=== PATIENT | female | born 1985 | race Caucasian/White ===

== ENCOUNTER 2020-01-28 14:57 | Emergency (ER) | payer OTHER, SELFPAY ==
[2020-01-28 15:27] VITALS: BP 114/72; PULSE 95; RESP 18; TEMP 37.1; O2SAT 99
--- NOTE | 2020-01-28 16:24 | ED.GENADULT ---
HPI - General Adult General Chief complaint: Upper Respiratory Infection Stated complaint: Ear/Nose/Throat Time Seen by Provider: 01/28/20 16:24 Source: patient Mode of arrival: ambulatory Limitations: no limitations History of Present Illness HPI narrative: 34-year-old female patient presents to the [facility] with complaints of cold symptoms for the past 4 days. Patient denies any fevers that she is aware of stating that she does not have a thermometer at home but she has had body aches, chills, runny nose, stuffy nose, slight cough and sore throat. Patient also states that she has had a blister right behind the left lower molar that started today. Patient states she is been taking [id number] Tylenol. Denies getting flu shot this year. Patient is a smoker. Patient denies or breast-feeding at this time. Related Data Allergies Allergy/AdvReac Type Severity Reaction Status Date / Time Sulfa (Sulfonamide Allergy Unknown Rash Verified 01/28/20 15:55 Antibiotics) Review of Systems Review of Systems: Narrative: CONSTITUTIONAL: Denies fever, positive subjective chills, and sweats. EYES: Denies visual changes, redness, or discharge. ENT: Positive rhinorrhea, congestion, sore throat, denies otalgia. CARDIOVASCULAR: Denies chest pain, palpitations, or edema. RESPIRATORY: Positive mild cough denies dyspnea. GASTROINTESTINAL: Denies abdominal pain, nausea, vomiting, or diarrhea. GENITOURINARY: Denies dysuria or hematuria. SKIN: Denies rash or itching. MUSCULOSKELETAL: Denies back pain, joint pain, or myalgia. NEUROLOGIC: Positive headache, denies numbness, or weakness. PSYCHIATRIC: Denies anxiety or depression. [facility] Past Medical History Medical History Anxiety with depression Bladder cystocele Frequent UTI Nicotine dependence with current use Tobacco dependence Surgical History Surgical History H/O LEEP Hx of appendectomy Hx of tonsillectomy Family History Family History Mother Family history of anemia Family history of arthritis Family history of atrial fibrillation Social History Social History (Reviewed 01/28/20 @ 16:25 by MIKAELA Funez Smoking packs per day: 0.5 Smoking cigarettes per day: 10.0 Years smoked: 15 Smoking pack-years: 7.50 Smoking status: Current every day smoker Tobacco type: cigarettes Second hand tobacco smoke exposure: Yes Alcohol intake: current Substance use: never Substance use type: does not use Additional living arrangements comments: Gender identity (if verbalized by the patient): Female Spiritual care concerns: No Comments At the time of my signature I agree with nursing past medical history, surgical, social, and family history. There is no relevant family history pertinent to the presenting complaint. Exam Narrative: Exam Narrative: GENERAL: Well-appearing, well-nourished, and in no acute distress. HEAD: Normocephalic, atraumatic. No tenderness noted to frontal or maxillary sinuses on palpation EYES: PERRLA and EOMI. ENT: Nares with erythema and edema noted bilaterally, no rhinorrhea or epistaxis. Mucous membranes moist. Posterior pharynx with no erythema, tonsillar margin, exudates or lesions present. There is a small ulcer noted behind the back molar on the left lower oral cavity. NECK: Supple. No lymphadenopathy CHEST: Clear to auscultation. No respiratory distress. Patient will talk clear complete sentences HEART: Regular rate and rhythm. No murmur heard. Normal peripheral pulses. ABDOMEN: Soft, nontender, nondistended, normal active bowel sounds. EXTREMITIES: Normal range of motion. No edema. SKIN: Warm, dry, no rash. NEURO: No focal deficits. Alert and oriented x3. Course Reevaluation(s) Reevaluation #1: Notify patient that she is negative t
== END 2020-01-28 16:40 | disposition home or self-care (01) ==
PROVIDERS: Emergency Provider Nurse Practitioner Family
DX: K12.0 Recurrent oral aphthae (principal); J06.9 Acute upper respiratory infection, unspecified; J02.9 Acute pharyngitis, unspecified; R05 Cough; F17.210 Nicotine dependence, cigarettes, uncomplicated; F41.9 Anxiety disorder, unspecified; F32.9 Major depressive disorder, single episode, unspecified
CPT/HCPCS: 87081; 87880; 99213; G0463

== ENCOUNTER 2020-05-11 07:47 | Outpatient (CLI) | payer OTHER, SELFPAY ==
--- NOTE | ~2020-05-11 | US_ITS ---
EXAMINATION: US abdomen complete DATE: 05/11/2020 08:40 INDICATION: Epigastric abdominal pain. Nausea and vomiting. TECHNIQUE: Multiple grayscale and Doppler ultrasound images of the abdomen were obtained. COMPARISON: None FINDINGS: The visualized portions of the head, body, and tail of the pancreas are normal. The inferio r vena cava is normal. Abdominal aorta is normal in caliber. The liver is normal without focal lesion . No liver surface nodularity. There is normal flow in main portal vein. The gallbladder is normal in size and contains sludge. No gallstones or gallbladder wall thickening. There was no sonographic Mur phy sign. The common duct is normal and measures 3 mm. The spleen is normal in size. The kidneys are normal in size. IMPRESSION: 1. Gallbladder sludge. No evidence of acute cholecystitis. Reviewed, dictated and finalized at location A.
[2020-05-11 08:01] LABS: Basophils Absolute Auto 0.03 K/mm3 (0.00-0.10); Basophils Percent Auto 0.5 % (0.0-1.0); Hematocrit 37.7 % (35.0-49.0); Hemoglobin 12.4 g/dL (12.0-15.0); Immature Granulocyte Absolute 0.02 K/mm3 (0.00-0.00); Immature Granulocyte Percent A 0.4 % (0.0-0.0); Lymphocytes Absolute Auto 1.76 K/mm3 (1.10-4.50); Lymphocytes Percent Auto 32.1 % (18.0-42.0); Mean Corpuscular HGB Conc 32.9 g/dL (32.0-36.0); Mean Corpuscular Hemoglobin 29.5 pg (27.0-31.0); Mean Corpuscular Volume 89.5 fL (78.0-102.0); Mean Platelet Volume 10.7 fl (9.2-11.8); Monocytes Absolute Auto 0.48 K/mm3 (0.10-0.90); Monocytes Percent Auto 8.7 % (2.0-11.0); Neutrophils Absolute Auto 3.2 K/mm3 (1.7-7.2); Neutrophils Percent Auto 58.3 % (50.0-70.0); Platelet Count Result 194 K/mm3 (150-420); Red Blood Count 4.21 M/mm3 (4.20-5.40); Red Cell Distribution Width 13.1 % (11.6-14.4); White Blood Count 5.5 K/mm3 (4.8-10.8)
[2020-05-11 08:59] LABS: Alanine Aminotransferase 48 U/L (14-59); Albumin Level 3.7 g/dL (3.4-5.0); Alkaline Phosphatase 49 U/L (46-116); Amylase 38 U/L (25-115); Anion Gap 11.3 mmol/L (7-16); Aspartate Amino Transferase 31 U/L (15-37); Bilirubin,Total 0.2 mg/dL (0.00-1.00); Blood Urea Nitrogen 11 mg/dL (7-18); Calcium 8.8 mg/dL (8.5-10.1); Carbon Dioxide 30 mmol/L (21-32); Chloride 103 mmol/L (98-108); Estimated Glomerular Filt Rate > 60; Glucose 92 mg/dL (70-99); Lipase 80 U/L (73-393); Osmolality Calculated 289 mOsm/kg (285-295); Potassium 4.3 mmol/L (3.5-5.1); Sodium 140 mmol/L (136-145); Total Protein 6.9 g/dL (6.4-8.2)
[2020-05-14 14:30] LABS: H pylori Ag Stool Not Detected (Not Detected)
== END 2020-05-11 07:48 | disposition home or self-care (01) ==
PROVIDERS: PCP Nurse Practitioner Family; Visit Provider Nurse Practitioner Family
DX: R10.13 Epigastric pain (principal)
CPT/HCPCS: 36415; 76700; 80053; 82150; 83690; 85025; 87338

== ENCOUNTER 2020-10-10 11:56 | Emergency (ER) | payer OTHER, SELFPAY ==
--- NOTE | ~2020-10-10 | XR_ITS ---
EXAMINATION: XR hand RT min 3V INDICATION: Right hand pain, initial encounter TECHNIQUE: Three views of the right hand are obtained on four radiographs. COMPARISON: None available FINDINGS: There is an acute, traumatic, closed, oblique mid shaft fracture of the fifth metacarpal. T here are 30 degrees of palmar angulation at the fracture site. Soft tissue swelling surrounds the fra cture. No additional acute osseous findings are evident. The joint spaces are maintained. IMPRESSION: 1. Acute mid shaft fracture of the fifth metacarpal with palmar angulation. Reviewed, dictated and finalized at location A. IGERATOR CAR ICER
[2020-10-10 12:11] VITALS: BP 118/73; PULSE 88; RESP 20; TEMP 36.6; O2SAT 98
--- NOTE | 2020-10-10 12:11 | ED.UPPEXIN ---
HPI - Extremity Injury (Upper) General Chief Complaint: Extremity Injury, Upper Stated Complaint: hurt right hand Time Seen by Provider: 10/10/20 12:11 Source: patient Mode of arrival: ambulatory Limitations: no limitations History of Present Illness HPI narrative: 35-year-old woman comes in today complaining of right hand pain and swelling that started this morning after she struck her hand on a banister ball falling down the stairs. Patient states that she is safe at home and denies any other injuries. She denies numbness or tingling. Pain is worse with movement and palpation of the injured area. complaint: injury to: right and hand Onset (ago): hour(s) (3) Other Extremity Injury: Right: hand Other injuries: none Handedness: right Place: home Severity: moderate Relieving factors: none Exacerbating factors: movement of extremity Context: fall Treatments prior to arrival: cold therapy and NSAIDS Related Data Home Medications Medication Instructions Recorded Confirmed aripiprazole 5 mg tablet 5 mg PO DAILY tablet 05/10/20 10/10/20 escitalopram oxalate 5 mg tablet 5 mg PO DAILY 05/10/20 10/10/20 Allergies Allergy/AdvReac Type Severity Reaction Status Date / Time Sulfa (Sulfonamide Allergy Unknown Rash Verified 10/10/20 12:27 Antibiotics) Review of Systems Musculoskeletal: Musculoskeletal: Denies back pain, Reports arthralgias and Reports joint swelling Integumentary/Breasts: Skin/Breast: Denies pruritus, Denies erythema and Denies rash Hematologic/Lymphatic: Hematologic/Lymphatic: Denies easy bleeding and Denies easy bruising Allergic/Immunologic: Allergic/Immunologic: Denies lip swelling and Denies wheezing PMFSH Past Medical History Medical History Anxiety with depression Bladder cystocele Bladder dysfunction BMI 27.0-27.9,adult Frequent UTI Nicotine dependence with current use Self-catheterizes urinary bladder Tobacco dependence Surgical History Surgical History H/O LEEP Hx of appendectomy Hx of tonsillectomy Family History Family History Mother Family history of anemia Family history of arthritis Family history of atrial fibrillation Social History Social History Smoking packs per day: 0.5 Smoking cigarettes per day: 10.0 Years smoked: 15 Smoking pack-years: 7.50 Smoking status: Current every day smoker Tobacco type: cigarettes Second hand tobacco smoke exposure: Yes Alcohol intake: current Substance use: never Substance use type: does not use Additional living arrangements comments: Gender identity (if verbalized by the patient): Female Spiritual care concerns: No Exam Const: General: healthy appearing and alert Orientation/consciousness: patient oriented x3 Limitations: no limitations Other: Mild acute distress HENMT: General nose exam: Normal nares present Face and sinus: normal facial exam Resp: Effort & Inspection: normal respiratory effort and not labored Auscultation: clear to auscultation bilaterally, no rales, no rhonchi and no wheezes Cardio: Rate: regular rate Rhythm: regular rhythm Heart sounds: no murmurs Skin: General skin exam: normal color, no jaundice and no pallor Rashes: no rashes Neuro: General: patient oriented x3, no meningeal signs, no focal motor deficits and CN's II-XI intact bilaterally Speech: normal speech Gait exam (Neuro): Normal gait present Extrem: General: no clubbing, cyanosis or edema Other: swelling and tenderness over the distal right 5th metatarsal with no tenderness to palpation of the middle and distal phalanx. The remaining fingers and metatarsals are without tenderness or swelling or decrease in range of motion. There is no Swelling, bruising, or tenderness
[2020-10-10 13:08] VITALS: PULSE 84; RESP 20; O2SAT 98
== END 2020-10-10 13:11 | disposition home or self-care (01) ==
PROVIDERS: Emergency Provider Emergency Medicine; PCP Family Medicine
DX: S62.336A Displaced fracture of neck of fifth metacarpal bone, right hand, initial encounter for closed fracture (principal); W22.8XXA Striking against or struck by other objects, initial encounter
CPT/HCPCS: 29125; 73130; 99283; 99284; A4565

== ENCOUNTER 2020-12-26 11:51 | Emergency (ER) | payer OTHER, SELFPAY ==
[2020-12-26 12:21] VITALS: BP 105/60; PULSE 96; RESP 18; TEMP 36.4; O2SAT 98
--- NOTE | 2020-12-26 12:43 | ED.FEMALEGU ---
HPI - Female Genitourinary General Chief complaint: Urogenital-Female Stated complaint: UTI Time Seen by Provider: 12/26/20 12:43 Source: patient Mode of arrival: ambulatory Limitations: no limitations History of Present Illness HPI Narrative: Chris Toth is a 35 yo female with chronic cystitis and respiratory dysfunction, [facility] for UTI. She is taken Macrobid but has a history of needing surgical intervention urethral tubes. Currently does not have a urologist so will be given a referral ; discussed changing her antibiotic and Pyridium Related Data Allergies Allergy/AdvReac Type Severity Reaction Status Date / Time Sulfa (Sulfonamide Allergy Unknown Rash Verified 12/26/20 12:23 Antibiotics) Review of Systems Review of Systems: Narrative: CONSTITUTIONAL: Denies fever, chills, sweats. EYES: Denies visual changes, redness, discharge. ENT: Denies rhinorrhea, congestion, sore throat, otalgia. CARDIOVASCULAR: Denies chest pain, palpitations, edema. RESPIRATORY: Denies dyspnea, wheezing, cough GASTROINTESTINAL: Denies abdominal pain, nausea, vomiting, diarrhea. GENITOURINARY: Denies dysuria, hematuria, abnormal discharge SKIN: Denies rash or itching. Chronic urinary symptoms NEUROLOGIC: Denies numbness, or focal weakness. PSYCHIATRIC: Denies anxiety or depression. [facility] Past Medical History Medical History Anxiety with depression Bladder cystocele Bladder dysfunction BMI 27.0-27.9,adult Frequent UTI Nicotine dependence with current use Self-catheterizes urinary bladder Tobacco dependence Surgical History Surgical History H/O LEEP Hx of appendectomy Hx of tonsillectomy Family History Family History Mother Family history of anemia Family history of arthritis Family history of atrial fibrillation Social History Social History Smoking packs per day: 0.5 Smoking cigarettes per day: 10.0 Years smoked: 15 Smoking pack-years: 7.50 Smoking status: Current every day smoker Tobacco type: cigarettes Second hand tobacco smoke exposure: Yes Alcohol intake: current Substance use: never Substance use type: does not use Additional living arrangements comments: Gender identity (if verbalized by the patient): Female Spiritual care concerns: No Comments At time of signature, I agree with nursing past medical, surgical, social and family history. There is no relevant family history pertinent to the presenting complaint. Exam Narrative: Exam Narrative: GENERAL: This is a well-nourished, well-developed patient, in mild distress. HEAD: normocephalic, atraumatic. EYES: Sclera clear/white. Vision is grossly intact. EARS: External ears normal, Hearing grossly intact. NOSE: External nose normal without nasal discharge, nares without redness, no rhinorrhea. THROAT: Mucous membranes moist, NECK: Neck supple, CARDIOVASCULAR: Regular rate and rhythm without murmurs, gallops, or rubs. RESPIRATORY: Clear to auscultation. Breath sounds equal bilaterally. No wheezes, rales, or rhonchi. GASTROINTESTINAL: Abdomen soft, pt states tender, SKIN: warm, intact with no suspicious lesions or rash, good texture and turgor. NEURO: awake, alert, and oriented to person, place and time. There were no obvious focal neurologic abnormalities. Steady gait EXTREMITIES: Normal range of motion. BACK: Nontender without deformity Course Course Emergency Course: Patient here for recurrent UTI was seen at [facility] and treated here in triage with Macrobid has not improved UA shows positive leukocytes and nitrites-antibiotic changed to Keflex and Pyridium Follow-up with urologist list given from [facility] booklet Vital Signs Vital signs: V
== END 2020-12-26 12:55 | disposition home or self-care (01) ==
PROVIDERS: Emergency Provider Nurse Practitioner
DX: N30.00 Acute cystitis without hematuria (principal); F17.210 Nicotine dependence, cigarettes, uncomplicated
CPT/HCPCS: 81003; 87077; 87086; 87088; 87186; 99213; G0463

== ENCOUNTER 2021-04-04 14:21 | Emergency (ER) | payer OTHER, SELFPAY ==
[2021-04-04 14:26] VITALS: BP 131/78; PULSE 104; RESP 16; TEMP 36.8; O2SAT 100
--- NOTE | 2021-04-04 14:29 | ED.EAR ---
HPI - Ear Problem General Chief complaint: Ear Stated complaint: Ear pain causing pain around cheek and neck Time Seen by Provider: 04/04/21 14:30 Source: patient and RN notes reviewed History of Present Illness HPI Narrative: Patient is a 36-year-old female who presents the urgent care with complaints of right ear pain. Patient states that she has excessive earwax specifically to the right ear and has been using [id number] ear relief drops for pain. Patient has not been using Debrox. States that she uses peroxide in the ear as often for drainage. Reports that the pain started 2 days ago and now she is feeling it in her right neck and jaw . Denies of any fever or other upper respiratory complaints. No other acute complaints. No acute distress noted. Patient aware of the plan of care. Some parts of this dictation were generated by voice recognition software and may contain typographical and/or grammatical inaccuracies. Related Data Allergies Allergy/AdvReac Type Severity Reaction Status Date / Time Sulfa (Sulfonamide Allergy Unknown Rash Verified 04/04/21 14:30 Antibiotics) Review of Systems Review of Systems: Narrative: CONSTITUTIONAL: Denies fever, chills, or sweats. EYES: Denies visual changes, redness, or discharge. ENT: Reports of right otalgia radiating to the right jaw/cheek. No other upper respiratory complaints CARDIOVASCULAR: Denies chest pain, palpitations, or edema. RESPIRATORY: Denies cough or dyspnea. GASTROINTESTINAL: Denies abdominal pain, nausea, vomiting, or diarrhea. GENITOURINARY: Denies dysuria or hematuria. SKIN: Denies rash or itching. MUSCULOSKELETAL: Denies back pain, joint pain, or myalgia. NEUROLOGIC: Denies headache, numbness, or weakness. All other systems reviewed are negative, except as documented in HPI. [facility] Past Medical History Medical History Anxiety with depression Bladder cystocele Bladder dysfunction BMI 27.0-27.9,adult Frequent UTI Nicotine dependence with current use Self-catheterizes urinary bladder Tobacco dependence Surgical History Surgical History H/O LEEP Hx of appendectomy Hx of tonsillectomy Family History Family History Mother Family history of anemia Family history of arthritis Family history of atrial fibrillation Social History Social History Smoking packs per day: 0.5 Smoking cigarettes per day: 10.0 Years smoked: 15 Smoking pack-years: 7.50 Smoking status: Current every day smoker Tobacco type: cigarettes Second hand tobacco smoke exposure: Yes Alcohol intake: current Substance use: never Substance use type: does not use Additional living arrangements comments: Gender identity (if verbalized by the patient): Female Spiritual care concerns: No Comments At the time of my signature, I reviewed and agree with the nursing past medical, surgical, social, and family history. There is no relevant family history pertinent to the patient complaint. Exam Narrative: Exam Narrative: GENERAL: This is a well-nourished, well-developed patient, in no apparent distress. HEAD: normocephalic, atraumatic. EYES: PERRL. Sclera clear/white. Vision is grossly intact. EARS: External ears normal, auditory canals clear and without drainage, unable to visualize right TM due to cerumen impaction, left TMs normal without perforation. Hearing grossly intact. NOSE: External nose normal with no obvious nasal discharge, nares without redness, no rhinorrhea. THROAT: Mucous membranes moist, posterior pharynx clear. NECK: Neck supple, non-tender without lymphadenopathy CARDIOVASCULAR: Regular rate and rhythm without murmurs, gallops, or rubs. RESPIRATORY: Clear to auscultation. Breath sounds equal bilaterally. No wheezes,
== END 2021-04-04 15:02 | disposition home or self-care (01) ==
PROVIDERS: Emergency Provider Nurse Practitioner Family
DX: H92.01 Otalgia, right ear (principal); H61.21 Impacted cerumen, right ear; F17.210 Nicotine dependence, cigarettes, uncomplicated
CPT/HCPCS: 69209; 99213; G0463

== ENCOUNTER 2021-07-26 11:51 | Outpatient (CLI) | payer OTHER, SELFPAY ==
[2021-07-26 13:18] LABS: SARS-CoV-2 Ag Negative (Negative)
== END 2021-07-26 11:52 | disposition home or self-care (01) ==
LOC: CHSLAB 11:53
PROVIDERS: PCP Family Medicine; Visit Provider Family Medicine
DX: J02.9 Acute pharyngitis, unspecified (principal); Z20.822 Contact with and (suspected) exposure to COVID-19
CPT/HCPCS: 87426; C9803

== ENCOUNTER 2021-08-24 22:25 | Emergency (ER) | payer OTHER, SELFPAY ==
[2021-08-24 22:28] VITALS: PULSE 70; RESP 18; TEMP 36.6; O2SAT 99
--- NOTE | 2021-08-24 22:36 | ED.WOUNDLAC ---
HPI - Wound/Laceration General Chief Complaint: Wound/Laceration Stated Complaint: cut arm Time Seen by Provider: 08/24/21 22:36 Source: patient Mode of arrival: ambulatory Limitations: no limitations History of Present Illness HPI narrative: [age] old woman comes in today complaining of laceration on her right hand after she put her hand through a door window approximately 20 minutes ago. She denies any numbness or tingling. She states her last tetanus shot was 7 years ago. She denies any decreased range of motion and states that she is safe at home. Onset (ago): minute(s) (20) Extremity Location: Right: forearm and hand Place: home Patient tetanus UTD: Yes Context: accidental Associated symptoms: pain Related Data Allergies Allergy/AdvReac Type Severity Reaction Status Date / Time Sulfa (Sulfonamide Allergy Unknown Rash Verified 04/04/21 14:30 Antibiotics) Review of Systems Gastrointestinal: Gastrointestinal: Denies nausea and Denies vomiting Musculoskeletal: Musculoskeletal: Denies back pain, Denies arthralgias and Denies joint swelling Integumentary/Breasts: Skin/Breast: Reports as per HPI, Denies pruritus, Denies erythema and Denies rash Hematologic/Lymphatic: Hematologic/Lymphatic: Denies easy bleeding and Denies easy bruising PMFSH Past Medical History Medical History Anxiety with depression Bladder cystocele Bladder dysfunction BMI 27.0-27.9,adult Frequent UTI Nicotine dependence with current use Self-catheterizes urinary bladder Tobacco dependence Surgical History Surgical History H/O LEEP Hx of appendectomy Hx of tonsillectomy Family History Family History Mother Family history of anemia Family history of arthritis Family history of atrial fibrillation Social History Social History Smoking packs per day: 0.5 Smoking cigarettes per day: 10.0 Years smoked: 15 Smoking pack-years: 7.50 Smoking status: Current every day smoker Tobacco type: cigarettes Second hand tobacco smoke exposure: Yes Alcohol intake: current Substance use: never Substance use type: does not use Additional living arrangements comments: Gender identity (if verbalized by the patient): Female Spiritual care concerns: No Exam Const: General: healthy appearing, no acute distress and alert Orientation/consciousness: patient oriented x3 Skin: General skin exam: normal color Rashes: no rashes Other: Multiple small shallow lacerations on the volar right forearm and hands and fingers. There is a 3 cm mildly irregular laceration on the lright forearm that is full thickness. Neuro: General: patient oriented x3, moves all extremities, no focal motor deficits and CN's II-XI intact bilaterally Speech: normal speech Gait exam (Neuro): Normal gait present Extrem: General: normal to inspection and no clubbing, cyanosis or edema Other: Flexor tendons in the right hand are intact to challenge, both superficialis and profundus. Psych: Appearance: grossly normal and well kempt Mental Status: mental status grossly normal Affect: normal affect Attitude: cooperative Thought content: Yes Normal thought content present Procedures Laceration Laceration 1: Date: 08/24/21 Time: 22:45 Site: upper extremity Side (If applicable): right Description: irregular and clean Depth: simple, single layer Local Anesthetic: lidocaine 1% and with epi Amount of anesthesia used (mL): 2.5 Pre-repair: wound explored and irrigated (200 cc normal saline under pressure from a syringe) ====== Skin Level ====== Skin layer closed with: nylon Size (cm): 4-0 Number of sutures: 4 Technique: simple, interrupted
[2021-08-24 23:20] VITALS: PULSE 70; RESP 18; TEMP 36.6; O2SAT 99
== END 2021-08-24 23:24 | disposition home or self-care (01) ==
PROVIDERS: Emergency Provider Emergency Medicine
DX: S61.411A Laceration without foreign body of right hand, initial encounter (principal); W25.XXXA Contact with sharp glass, initial encounter; N31.9 Neuromuscular dysfunction of bladder, unspecified; F41.9 Anxiety disorder, unspecified; F32.9 Major depressive disorder, single episode, unspecified; F17.210 Nicotine dependence, cigarettes, uncomplicated
CPT/HCPCS: 12001; 99282

== ENCOUNTER 2021-09-14 10:40 | Emergency (ER) | payer OTHER, SELFPAY ==
[2021-09-14 10:50] VITALS: BP 126/79; PULSE 88; RESP 16; TEMP 36.6; O2SAT 100
[2021-09-14 10:56] VITALS: BP 126/79; PULSE 88; RESP 16; TEMP 36.6; O2SAT 100
--- NOTE | 2021-09-14 10:58 | ED.FEMALEGU ---
HPI - Female Genitourinary General Chief complaint: Urogenital-Female Stated complaint: UTI Time Seen by Provider: 09/14/21 10:58 Source: patient History of Present Illness HPI Narrative: PATIENT PRESENTS WITH FREQUENT URINARY INFECTIONS. HAS BEEN TREATED BU UROLOGIST PATIENT REPORTS BURNING WITH URINATION AND FREQUENCY. Related Data Home Medications Medication Instructions Recorded Confirmed aripiprazole 5 mg PO HS 09/14/21 09/14/21 Allergies Allergy/AdvReac Type Severity Reaction Status Date / Time Sulfa (Sulfonamide Allergy Unknown Rash Verified 04/04/21 14:30 Antibiotics) Review of Systems Review of Systems: CONSTITUTIONAL: Denies fever, chills, or sweats. EYES: Denies visual changes, redness, or discharge. ENT: Denies rhinorrhea, congestion, sore throat, or otalgia. CARDIOVASCULAR: Denies chest pain, palpitations, or edema. RESPIRATORY: Denies cough or dyspnea. GASTROINTESTINAL: Denies abdominal pain, nausea, vomiting, or diarrhea. GENITOURINARY: Denies dysuria or hematuria. SKIN: Denies rash or itching. MUSCULOSKELETAL: Denies back pain, joint pain, or myalgia. NEUROLOGIC: Denies headache, numbness, or weakness. PSYCHIATRIC: Denies anxiety or depression. Allergic/Immunologic: Comments: At time of signature, agree with nursing past medical, surgical, social and family history. There is no relevant family history pertinent to the presenting complaint PMFSH Past Medical History Medical History Anxiety with depression Bladder cystocele Bladder dysfunction BMI 27.0-27.9,adult Frequent UTI Nicotine dependence with current use Self-catheterizes urinary bladder Tobacco dependence Surgical History Surgical History H/O LEEP Hx of appendectomy Hx of tonsillectomy Family History Family History Mother Family history of anemia Family history of arthritis Family history of atrial fibrillation Social History Social History Smoking packs per day: 0.5 Smoking cigarettes per day: 10.0 Years smoked: 15 Smoking pack-years: 7.50 Smoking status: Current every day smoker Tobacco type: cigarettes Second hand tobacco smoke exposure: Yes Alcohol intake: current Substance use: never Substance use type: does not use Additional living arrangements comments: Gender identity (if verbalized by the patient): Female Spiritual care concerns: No Exam Narrative: GENERAL: Well-appearing, well-nourished, and in no acute distress. HEAD: Normocephalic, atraumatic. EYES: PERRLA and EOMI. ENT: Nares clear, no rhinorrhea or epistaxis. Mucous membranes moist. NECK: Supple. CHEST: Clear to auscultation. No respiratory distress. HEART: Regular rate and rhythm. No murmur heard. Normal peripheral pulses. ABDOMEN: Soft, nontender, nondistended, normal active bowel sounds. EXTREMITIES: Normal range of motion. No edema. SKIN: Warm, dry, no rash. NEURO: No focal deficits. Alert and oriented x3. Newborn Coma Scale Eye Opening: Spontaneous 4 Semaj Coma Scale Motor: Obeys Commands 6 Newborn Coma Scale Verbal: Oriented 5 Semaj Coma Scale Total 15 Course Vital Signs Vital signs: Vital Signs Temperature 36.6 C 09/14/21 10:50 Pulse Rate 88 09/14/21 10:50 Respiratory Rate 16 09/14/21 10:50 Blood Pressure 126/79 09/14/21 10:50 Pulse Oximetry 100 09/14/21 10:50 Temperature 36.6 C 09/14/21 10:56 Pulse Rate 88 09/14/21 10:56 Respiratory Rate 16 09/14/21 10:56 Blood Pressure 126/79 09/14/21 10:56 Pulse Oximetry 100 09/14/21 10:56 MDM - Female Genitourinary Lab Data Labs: Urine Glucose Negative Reference Range: Negative Urine Bilirubin Negative
== END 2021-09-14 11:14 | disposition home or self-care (01) ==
PROVIDERS: Emergency Provider Nurse Practitioner Family
DX: N39.0 Urinary tract infection, site not specified (principal); F17.210 Nicotine dependence, cigarettes, uncomplicated
CPT/HCPCS: 81003; 87077; 87086; 87088; 87186; 99213; G0463

== ENCOUNTER 2021-09-23 15:57 | Emergency (ER) | payer OTHER, SELFPAY ==
[2021-09-23 16:00] VITALS: BP 130/82; PULSE 92; RESP 20; TEMP 36.6; O2SAT 100
--- NOTE | 2021-09-23 16:09 | ED.URI ---
HPI - URI/Sore Throat General Chief Complaint: Urogenital-Female Stated Complaint: Sore Throat/Urinary Problem Time Seen by Provider: 09/23/21 16:24 Source: patient and RN notes reviewed Mode of arrival: ambulatory Limitations: no limitations History of Present Illness HPI Narrative: 36-year-old female presents with concern for sore throat nasal congestion, rhinorrhea, cough. Reports symptoms started yesterday. She denies body aches, chills, sweats, fever. She also reports concern for UTI. Reports frequent UTIs, she was treated for urinary tract infection 9 days ago. Reports she did not have symptoms then so she is not sure if her symptoms resolved. She denies current dysuria, frequency, urgency, hematuria, back pain, abdominal pain. MD elicited complaint: sore throat Related Data Home Medications Medication Instructions Recorded Confirmed aripiprazole 5 mg PO HS 09/14/21 09/23/21 Allergies Allergy/AdvReac Type Severity Reaction Status Date / Time Sulfa (Sulfonamide Allergy Unknown Rash Verified 09/23/21 16:19 Antibiotics) Review of Systems Review of Systems: CONSTITUTIONAL: Denies malaise, chills, sweats, or fever. EYES: Denies visual changes, redness, or discharge. ENT: Reports rhinorrhea, congestion, and sore throat. Denies ear pain and sinus pain CARDIOVASCULAR: Denies chest pain, palpitations, or edema. RESPIRATORY: Reports cough. Denies dyspnea. GASTROINTESTINAL: Denies abdominal pain, nausea, vomiting, diarrhea. Denies dysuria, frequency, urgency SKIN: Denies rash or itching. MUSCULOSKELETAL: Denies myalgia. NEUROLOGIC: Denies headache. All systems reviewed & are unremarkable except as noted in HPI and below PMFSH Past Medical History Medical History Anxiety with depression Bladder cystocele Bladder dysfunction BMI 27.0-27.9,adult Frequent UTI Nicotine dependence with current use Self-catheterizes urinary bladder Tobacco dependence Surgical History Surgical History H/O LEEP Hx of appendectomy Hx of tonsillectomy Family History Family History Mother Family history of anemia Family history of arthritis Family history of atrial fibrillation Social History Social History Smoking packs per day: 0.5 Smoking cigarettes per day: 10.0 Years smoked: 15 Smoking pack-years: 7.50 Smoking status: Current every day smoker Tobacco type: cigarettes Second hand tobacco smoke exposure: Yes Alcohol intake: current Substance use: never Substance use type: does not use Additional living arrangements comments: Gender identity (if verbalized by the patient): Female Spiritual care concerns: No Comments At time of signature, agree with nursing past medical, surgical, social and family history. There is no relevant family history pertinent to the presenting complaint Exam Narrative: GENERAL: Well-appearing, well-nourished, and in no acute distress. HEAD: Normocephalic EYES: PERRLA, conjunctivae clear ENT: Nares clear, turbinates edematous and erythematous, clear discharge. Mucous membranes moist. TM pearly adamson with dull light reflex bilaterally; no tragal tenderness. Oropharynx mildly erythematous without lesions. Tonsils not present, no drooling, no hoarseness, no trismus, uvula midline. NECK: Supple. No lymphadenopathy CHEST: Clear to auscultation, breath sounds equal. No wheezing, rhonchi, rales, or stridor. No respiratory distress, speaks in full sentences. HEART: Regular rate and rhythm. No murmur heard. SKIN: Warm, dry, no rash. NEURO: Alert and oriented x3. PSYCH: Normal mood and affect Course Course Emergency Course: Patient is aware of diagnosis, understands and agrees to treatment plan. Anticipatory guidance given. Patient agrees to fol
== END 2021-09-23 16:35 | disposition home or self-care (01) ==
PROVIDERS: Emergency Provider Nurse Practitioner
DX: J06.9 Acute upper respiratory infection, unspecified (principal); F17.210 Nicotine dependence, cigarettes, uncomplicated
CPT/HCPCS: 81003; 87081; 87086; 87880; 99213; G0463

== ENCOUNTER 2021-11-27 14:21 | Emergency (ER) | payer OTHER, SELFPAY ==
[2021-11-27 15:40] VITALS: BP 120/73; PULSE 88; RESP 16; TEMP 36.8; O2SAT 100
== END 2021-11-27 16:51 | disposition left against medical advice (07) ==
LOC: EXPBETH 14:23
PROVIDERS: Emergency Provider Registered Nurse
DX: Z53.21 Procedure and treatment not carried out due to patient leaving prior to being seen by health care provider (principal)
CPT/HCPCS: 99199

== ENCOUNTER 2022-04-06 08:53 | Outpatient (CLI) | payer OTHER, SELFPAY ==
--- NOTE | ~2022-04-06 | US_ITS ---
EXAMINATION: US pelvic complete w TV DATE: 04/06/2022 09:28 INDICATION: Assess IUD position TECHNIQUE: Multiple transabdominal and endovaginal sonographic images of the pelvis were obtained. COMPARISON: None. FINDINGS: The uterus measures 8.0 x 4.4 x 3.8 cm an IUD is seen and appears to be in expected positio n. The endometrial complex measures 7 mm. The right ovary measures 4.1 x 2.8 x 3.1 cm and contains a 3.2 cm cyst. The left ovary measures 1.4 x 2.6 x 1.9 cm. There is normal vascular flow in the ovaries . There is no free fluid in the pelvis. IMPRESSION: 1. IUD appears to be in expected position. Reviewed, dictated and finalized at location A.
== END 2022-04-06 08:54 | disposition home or self-care (01) ==
LOC: CHSIMG 08:54
PROVIDERS: Visit Provider Nurse Practitioner Family
DX: Z30.431 Encounter for routine checking of intrauterine contraceptive device (principal)
CPT/HCPCS: 76830; 76856

== ENCOUNTER 2022-05-09 15:30 | Outpatient (CLI) | payer OTHER, SELFPAY ==
[2022-05-09 15:53] LABS: Basophils Absolute Auto 0.03 K/mm3 (0.00-0.10); Basophils Percent Auto 0.4 % (0.0-1.0); Eosinophils Absolute Auto 0.01 K/mm3 (0.02-0.50); Eosinophils Percent Auto 0.1 % (1.0-6.0); Hematocrit 37.1 % (35.0-49.0); Hemoglobin 11.9 g/dL (12.0-15.0); Immature Granulocyte Absolute 0.02 K/mm3 (0.00-0.00); Immature Granulocyte Percent A 0.2 % (0.0-0.0); Lymphocytes Absolute Auto 2.17 K/mm3 (1.10-4.50); Lymphocytes Percent Auto 25.5 % (18.0-42.0); Mean Corpuscular HGB Conc 32.1 g/dL (32.0-36.0); Mean Corpuscular Hemoglobin 29.2 pg (27.0-31.0); Mean Corpuscular Volume 90.9 fL (78.0-102.0); Mean Platelet Volume 11.1 fl (9.2-11.8); Monocytes Absolute Auto 0.54 K/mm3 (0.10-0.90); Monocytes Percent Auto 6.3 % (2.0-11.0); Neutrophils Absolute Auto 5.7 K/mm3 (1.7-7.2); Neutrophils Percent Auto 67.5 % (50.0-70.0); Platelet Count Result 240 K/mm3 (150-420); Red Blood Count 4.08 M/mm3 (4.20-5.40); Red Cell Distribution Width 13.6 % (11.6-14.4); White Blood Count 8.5 K/mm3 (4.8-10.8)
[2022-05-09 16:19] LABS: Alanine Aminotransferase 45 U/L (14-59); Albumin Level 3.9 g/dL (3.4-5.0); Alkaline Phosphatase 54 U/L (46-116); Anion Gap 9 mmol/L (8-16); Aspartate Amino Transferase 31 U/L (15-37); Bilirubin,Total 0.4 mg/dL (0.00-1.00); Blood Urea Nitrogen 10 mg/dL (7-18); Calcium 9.2 mg/dL (8.5-10.1); Carbon Dioxide 27 mmol/L (21-32); Chloride 103 mmol/L (98-108); Estimated Glomerular Filt Rate > 60; Glucose 103 mg/dL (70-99); Magnesium 2.1 mg/dL (1.8-2.4); Osmolality Calculated 287 mOsm/kg (285-295); Potassium 3.7 mmol/L (3.5-5.1); Sodium 139 mmol/L (136-145)
[2022-05-09 16:46] LABS: Appearance Urine Slightly Cloudy (Clear); Bilirubin Urine 2+ (Negative); Glucose Urine UA 1+ (Negative); Ketones Urine Trace (Negative); Leukocyte Esterase Ur 1+ (Negative); Nitrate Urine Positive (Negative); Protein Urine 2+ (Negative); Specific Grav Ur 1.015 (1.010-1.020); Urobilinogen Urine >=8.0 mg/dL (0.2-1.0)
[2022-05-09 17:51] LABS: Add Urine Microscopic? YES; Bacteria Urine 3+ /hpf; Blood Urine Trace-Intact (Negative); Color Urine Dark Orange (Yellow); RBC Urine 0-2 /hpf (0-2); Squamous Epithelial Cell Urine Few /hpf (Few)
[2022-05-11 19:34] LABS: ANA Cascade Screen Negative (Negative)
== END 2022-05-09 15:31 | disposition home or self-care (01) ==
PROVIDERS: PCP Nurse Practitioner Family; Visit Provider Nurse Practitioner Family
DX: N39.0 Urinary tract infection, site not specified (principal); M25.50 Pain in unspecified joint; E83.42 Hypomagnesemia
CPT/HCPCS: 36415; 80053; 81001; 83735; 84443; 85025; 86038; 87077; 87086; 87088; 87186

== ENCOUNTER 2022-05-15 13:00 | Outpatient (RCR) | payer OTHER, SELFPAY ==
--- NOTE | 2022-05-12 15:04 | OTOPEVAL ---
Thank you for referring Chris Toth to [facility].? The patient is scheduled to be seen for therapy? ____x/week for ___ weeks. Please review, sign, date and return this plan of care ELIZABETH. I agree with and certify that the following plan of care is medically necessary. Referring Physician Date Admitting Provider: Attending Provider: Vanna Mckee NP Referring Provider: *OT Outpatient Evaluation Start: 05/12/22 13:08 Freq: Status: Active Protocol: Document 05/12/22 13:08 [facility] [place] (Rec: 05/12/22 15:04 [facility] [place] [id number]) Therapy Assessment Status Assessment Status Assessment Status Evaluation Outpatient Past Medical History Gastrointestinal History Hx Appendectomy Yes Genitourinary History Hx Urinary Tract Infection Yes Hx Other Genitourinary Disorders Yes: EXPLORATORY SURGERIES FOR KIDNEY/BLADDER Musculoskeletal History Hx Fractures Yes: RT ELBOW, LT LEG HEENT History Hx Tonsillectomy Yes Reproductive History Hx Endometriosis Yes Hx Other Reproductive Disorders Yes: LEEP PROCEDURE, EXPLORATORY LAP Psychosocial History Hx Anxiety Yes Hx Depression Yes Evaluation Information Problem Diagnosis R thumb pain Onset 05/10/22 Additional Evaluation Detail Quick DASH: 38.6% Subjective Information Patient reports that her R Query Text:As Reported By Patient/ thumb pain has been going on Family for about a year. Patient states that the pain is described as throbbing . She feels like the pain is getting worse and specifically hurts when she bends her thumb back. Patient states that over the last couple weeks she has been trying to stretch it but feels like it is getting worse. Prior Level of Function Activity Level (Last 3 Months) Occupation unemployed Hand Dominance Right Activity of Daily Living Ability Independent Indoor/Home Mobility Independent Community Mobility Independent Stairs Ability Independent Functional Cognition (Planning, Shopping Independent , Taking Medications) Cooking Yes Cleaning Yes Laundry Yes Shopping Yes Driving Yes Pain Assessment Timing of Pain Assessment Timing of Pain Assessment
== END 2022-05-30 23:59 | disposition home or self-care (01) ==
LOC: CHSOT 13:00
PROVIDERS: PCP Nurse Practitioner Family; Visit Provider Nurse Practitioner Family
DX: M79.644 Pain in right finger(s) (principal)
CPT/HCPCS: 97035; 97110; 97140; 97165

== ENCOUNTER 2022-08-29 15:38 | Outpatient (NON) | payer OTHER, SELFPAY ==
[2022-08-29 15:46] LABS: Appearance Urine Clear (Clear); Bilirubin Urine Negative (Negative); Blood Urine Negative (Negative); Glucose Urine UA Negative (Negative); Ketones Urine Negative (Negative); Leukocyte Esterase Ur 3+ LEU/UL (Negative); Nitrate Urine Positive (Negative); Protein Urine Negative (Negative); Specific Grav Ur <= 1.005 (1.010-1.020); Urobilinogen Urine 0.2 mg/dL (0.2-1.0)
[2022-08-29 15:51] LABS: Add Urine Microscopic? YES; Bacteria Urine 4+ /hpf; Color Urine Light Yellow (Yellow); RBC Urine 0-2 /hpf (0-2); Squamous Epithelial Cell Urine Few /hpf (Few); WBC Urine 21-30 /hpf (0-3)
== END 2022-08-29 15:39 | disposition home or self-care (01) ==
LOC: CHSLAB 15:39
PROVIDERS: Visit Provider Nurse Practitioner Family
DX: R39.9 Unspecified symptoms and signs involving the genitourinary system (principal)
CPT/HCPCS: 81001; 87077; 87086; 87088; 87186

== ENCOUNTER 2022-12-06 17:15 | Outpatient (NON) | payer OTHER, SELFPAY ==
[2022-12-06 17:30] LABS: Add Urine Microscopic? YES; Appearance Urine Clear (Clear); Bilirubin Urine Negative (Negative); Blood Urine Negative (Negative); Color Urine Light Yellow (Yellow); Glucose Urine UA Negative (Negative); Ketones Urine Negative (Negative); Leukocyte Esterase Ur 3+ LEU/UL (Negative); Nitrate Urine Positive (Negative); Protein Urine Negative (Negative); Specific Grav Ur <= 1.005 (1.010-1.020); Urobilinogen Urine 0.2 mg/dL (0.2-1.0)
[2022-12-06 17:38] LABS: RBC Urine 0-2 /hpf (0-2); Squamous Epithelial Cell Urine Few /hpf (Few)
[2022-12-06 17:39] LABS: Bacteria Urine 2+ /hpf
== END 2022-12-06 17:16 | disposition home or self-care (01) ==
LOC: CHSLAB 17:16
PROVIDERS: Visit Provider Nurse Practitioner Family
DX: R39.9 Unspecified symptoms and signs involving the genitourinary system (principal)
CPT/HCPCS: 81001; 87077; 87086; 87088

== ENCOUNTER 2022-12-07 13:14 | Outpatient (CLI) | payer OTHER, SELFPAY ==
--- NOTE | ~2022-12-07 | XR_ITS ---
EXAMINATION: XR lumbar spine 2-3V DATE: 12/07/2022 13:31 INDICATION: Low back pain TECHNIQUE: Anteroposterior and lateral views of the lumbar spine, and cone-down lateral view of the l umbosacral junction were obtained. COMPARISON: None. FINDINGS: Bone alignment is normal. There is no fracture. The vertebral body heights are maintained. There is mild loss of intervertebral disc space height at L5-S1. IMPRESSION: 1. Mild lumbar spondylosis at L5-S1 without acute findings. Reviewed, dictated and finalized at location L. MATIC LOG CUT OFF SAWYER
--- NOTE | ~2022-12-07 | XR_ITS ---
EXAMINATION: XR hip RT min 2V DATE: 12/07/2022 13:31 INDICATION: Right hip pain TECHNIQUE: Two views of right hip were obtained. COMPARISON: None. FINDINGS: Bone alignment is normal. There is no fracture. The soft tissues are unremarkable. IMPRESSION: 1. No acute osseous abnormality. Reviewed, dictated and finalized at location L. ERCIAL OCEAN CLAMMER
== END 2022-12-07 13:15 | disposition home or self-care (01) ==
LOC: CHSIMG 13:16
PROVIDERS: PCP Nurse Practitioner Family; Visit Provider Nurse Practitioner Family
DX: M54.50 Low back pain, unspecified (principal); M25.551 Pain in right hip; M43.06 Spondylolysis, lumbar region
CPT/HCPCS: 72100; 73502

== ENCOUNTER 2022-12-21 13:29 | Outpatient (CLI) | payer OTHER, SELFPAY ==
--- NOTE | ~2022-12-21 | US_ITS ---
EXAMINATION: US soft tissue lower back DATE: 12/21/2022 13:52 INDICATION: Palpable lump at the left lower back. TECHNIQUE: Multiple grayscale and Doppler ultrasound images of the region of concern at the left lowe r back near the gluteal cleft were obtained. COMPARISON: None FINDINGS: Nonspecific 1.7 x 1.5 x 0.6 cm lenticular anechoic to very hypoechoic lesion along the periphery of t he superficial muscular fascia likely of the left gluteus marcus muscle. No internal vascular flow o r surrounding hyperemia on color Doppler. IMPRESSION: 1. 1.7 x 1.5 x 0.6 cm lenticular anechoic to very hypoechoic lesion along the surface of the superfic ial muscular fascia at the region of concern. Unclear whether this represents a cystic fluid collecti on suggest a hematoma/seroma or solid neoplasm such as a schwannoma or nerve sheath tumor. Consider f urther evaluation with pre and postcontrast MRI. Reviewed, dictated and finalized at location L. EL RIFLER BUTTON IMPRESSION: 1. 1.7 x 1.5 x 0.6 cm lenticular anechoic to very hypoechoic lesion along the s urface of the superficial muscular fascia at the region of concern. Unclear whe ther this represents a cystic fluid collection suggest a hematoma/seroma or kelly id neoplasm such as a schwannoma or nerve sheath tumor. Consider further evalua tion with pre and postcontrast MRI.
== END 2022-12-21 13:30 | disposition home or self-care (01) ==
LOC: CHSIMG 13:31
PROVIDERS: PCP Nurse Practitioner Family; Visit Provider Nurse Practitioner Family
DX: R22.2 Localized swelling, mass and lump, trunk (principal)
CPT/HCPCS: 76705

== ENCOUNTER 2022-12-28 08:20 | Outpatient (CLI) | payer OTHER, SELFPAY ==
--- NOTE | ~2022-12-28 | MR_ITS ---
MRI of the lumbar spine Clinical History: Palpable lump left lower back Technique: Axial T2-weighted images, and sagittal T1-weighted, T2-weighted, and T2 fat-sat images wer e acquired. Following intravenous administration of 15 cc MultiHance gadolinium, T1-weighted fat-sat imaging was performed in the axial and sagittal planes. Correlation made with ultrasound performed 12/21/2022. Findings: There is no fracture or subluxation of the lumbar spine. Vertebral bodies maintain normal h eight and alignment. Note bone marrow signal abnormality evident. There is mild disc bulge at L5-S1. Remaining lumbar intervertebral discs maintain normal signal and p osition. No tanvir spinal canal stenosis evident. No definite neural foraminal narrowing evident. Paravertebral soft tissues are unremarkable. No MR correlate seen for the abnormality seen on recent ultrasound. No abnormal postcontrast enhancement identified. Impression: No MR correlate for the abnormality seen on recent ultrasound. Disc bulge at L5-S1. Reviewed, dictated and finalized at [facility]. ROAST Impression: No MR correlate for the abnormality seen on recent ultrasound. Disc bulge at L5-S1.
== END 2022-12-28 08:21 | disposition home or self-care (01) ==
LOC: CHSIMG 08:21
PROVIDERS: PCP Nurse Practitioner Family; Visit Provider Nurse Practitioner Family
DX: R22.2 Localized swelling, mass and lump, trunk (principal); M51.37 Other intervertebral disc degeneration, lumbosacral region
CPT/HCPCS: 72158; A9577

== ENCOUNTER 2023-01-25 10:56 | Outpatient (CLI) | payer OTHER, SELFPAY ==
[2023-01-25 19:19] LABS: Vitamin D 25 Hydroxy 18.6 ng/mL
[2023-01-25 20:51] LABS: Appearance Urine Cloudy (Clear); Bilirubin Urine Negative (Negative); Blood Urine Trace-lysed (Negative); Color Urine Yellow (Yellow); Glucose Urine UA Negative (Negative); Ketones Urine Negative (Negative); Leukocyte Esterase Ur 2+ LEU/UL (Negative); Nitrate Urine Positive (Negative); Protein Urine Negative (Negative); Urobilinogen Urine 0.2 mg/dL (<2.0)
[2023-01-25 20:56] LABS: Add Urine Microscopic? YES
[2023-01-25 20:59] LABS: Bacteria Urine 2+ /hpf
[2023-01-25 21:00] LABS: RBC Urine 0-2 /hpf (0-2); Squamous Epithelial Cell Urine Moderate /hpf (Few); WBC Urine 51-100 /hpf (0-3)
[2023-01-25 21:08] LABS: Basophils Percent Auto 0.4 % (0.2-1.2); Hematocrit 39.9 % (37.0-47.0); Hemoglobin 12.5 g/dL (12.0-15.0); Immature Granulocyte Absolute 0.01 K/mm3 (0.00-0.031); Immature Granulocyte Percent A 0.1 % (0-0.5); Lymphocytes Absolute Auto 2.15 K/mm3 (0.9-3.2); Lymphocytes Percent Auto 30.7 % (18.3-44.2); Mean Corpuscular HGB Conc 31.3 g/dl (32-36); Mean Corpuscular Hemoglobin 29.1 pg (26-34); Mean Corpuscular Volume 92.8 fl (80-100); Mean Platelet Volume 11.9 fl (7.4-10.4); Monocytes Absolute Auto 0.4 K/mm3 (0.1-0.6); Monocytes Percent Auto 6.1 % (2.6-8.5); Neutrophils Absolute Auto 4.4 K/mm3 (1.3-6.7); Neutrophils Percent Auto 62.7 % (45.5-73.1); Platelet Count Result 248 k/mm3 (150-375); Red Cell Distribution Width 13.5 % (11.5-14.5)
== END 2023-01-25 10:57 | disposition home or self-care (01) ==
PROVIDERS: PCP Family Medicine; Visit Provider Family Medicine
DX: D64.9 Anemia, unspecified (principal); E55.9 Vitamin D deficiency, unspecified; R31.9 Hematuria, unspecified
CPT/HCPCS: 36415; 81001; 82306; 85025

== ENCOUNTER 2023-05-07 11:41 | Outpatient (CLI) | payer OTHER, SELFPAY ==
[2023-05-07 19:24] LABS: Appearance Urine Cloudy (Clear); Bacteria Urine 4+ /hpf; Bilirubin Urine Negative (Negative); Blood Urine 1+ (Negative); Color Urine Yellow (Yellow); Glucose Urine UA Negative (Negative); Ketones Urine Negative (Negative); Leukocyte Esterase Ur 2+ LEU/UL (Negative); Nitrate Urine Positive (Negative); Non Pathogenic Casts 0-2; Protein Urine Negative (Negative); Specific Grav Ur 1.009 (1.001-1.035); Squamous Epithelial Cell Urine Few /hpf (Few); Urobilinogen Urine 0.2 mg/dL (<2.0); WBC Urine 51-100 /hpf; pH Urine 6.5 (5.0-9.0)
[2023-05-07 19:30] LABS: Add Urine Microscopic? YES
== END 2023-05-07 11:42 | disposition home or self-care (01) ==
LOC: ANHBWCLAB 11:42
PROVIDERS: PCP Family Medicine; Visit Provider Nurse Practitioner Adult Health
DX: N39.0 Urinary tract infection, site not specified (principal)
CPT/HCPCS: 81001; 87077; 87086; 87186

== ENCOUNTER 2023-06-25 10:35 | Outpatient (CLI) | payer OTHER, SELFPAY ==
[2023-06-25 19:10] LABS: Appearance Urine Cloudy (Clear); Bacteria Urine 4+ /hpf; Bilirubin Urine Negative (Negative); Blood Urine 3+ (Negative); Color Urine Dark Yellow (Yellow); Glucose Urine UA Negative (Negative); Ketones Urine Negative (Negative); Leukocyte Esterase Ur 3+ LEU/UL (Negative); Need Manual Microscopic Reviewed; Nitrate Urine Positive (Negative); Non Pathogenic Casts 0-2; Protein Urine Negative (Negative); Specific Grav Ur 1.007 (1.001-1.035); Squamous Epithelial Cell Urine Few /hpf (Few); WBC Urine 21-50 /hpf; pH Urine 6.5 (5.0-9.0)
[2023-06-25 19:11] LABS: Add Urine Microscopic? YES
== END 2023-06-25 10:36 | disposition home or self-care (01) ==
LOC: ANHBWCLAB 10:38
PROVIDERS: PCP Nurse Practitioner Adult Health; Visit Provider Nurse Practitioner Adult Health
DX: M54.50 Low back pain, unspecified (principal)
CPT/HCPCS: 81001; 87077; 87086; 87186

== ENCOUNTER 2024-03-04 10:59 | Outpatient (CLI) | payer OTHER, SELFPAY ==
[2024-03-06 12:35] LABS: Amphetamines NEGATIVE ng/mL (<500); Barbiturates NEGATIVE ng/mL (<300); Benzodiazepines NEGATIVE ng/mL (<100); Cocaine Metabolite NEGATIVE ng/mL (<100); Methadone Metabolite NEGATIVE ng/mL (<100); Opiates NEGATIVE ng/mL (<100); Oxidant NEGATIVE mcg/mL (<200); pH 7.5 (4.5-9.0)
== END 2024-03-04 11:00 | disposition home or self-care (01) ==
PROVIDERS: PCP Nurse Practitioner Adult Health; Visit Provider Nurse Practitioner Adult Health
DX: Z79.899 Other long term (current) drug therapy (principal)
CPT/HCPCS: 80299

== ENCOUNTER 2024-06-12 11:27 | Outpatient (CLI) | payer OTHER, SELFPAY ==
--- NOTE | ~2024-06-12 | XR_ITS ---
Lumbosacral Spine: AP and lateral views Clinical History: Pain Findings: The normal lordotic curve is maintained. The vertebral bodies and posterior elements are i ntact. The intervertebral disc spaces are preserved. The sacroiliac joints are normally outlined. Impression: No significant abnormality. Reviewed, dictated and finalized at [facility]. Impression: No significant abnormality.
== END 2024-06-12 11:28 | disposition home or self-care (01) ==
PROVIDERS: PCP Nurse Practitioner Adult Health; Visit Provider Nurse Practitioner Adult Health
DX: M54.50 Low back pain, unspecified (principal); M25.561 Pain in right knee
CPT/HCPCS: 72100; 73562

== ENCOUNTER 2024-09-30 16:11 | Outpatient (RCR) | payer OTHER, SELFPAY ==
--- NOTE | 2024-09-30 17:26 | OPREHPOC ---
Outpatient Therapy Plan of Care This is a Multidisciplinary Plan of Care that may contain components documented by all disciplines (PT, OT, and ST.) PT Problem 1 PT Problem #1 Knowledge Deficit PT Goal 1 Goal / Goal Update The patient will be independent in a home exercise program. 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 Target Visit 10 PT Problem 3 PT Problem #3 Impaired Functional Mobil PT Goal 1 Goal / Goal Update 1. The patient will demonstrate 30% or less self perceived disability per the LEFS questionnaire. 2. The patient will demonstrate the ability to lift 10# from floor to waist with proper body mechanics and minimal pain in the lower back. Target Visit 10 PT Problem 4 PT Problem #4 Impaired Flexibility PT Goal 1 Goal / Goal Update The patient will demonstrate 5 degrees or less tightness in bilateral hamstrings. Target Visit 10 PT Problem 5 PT Problem #5 Impaired Strength PT Goal 1 Goal / Goal Update 1. The patient will demonstrate at least 4-/5 lower abdominal and lumbar extension strength. 2. The patient will demonstrate 4/5 bilateral hip abduction and extension strength. Target Visit 10
--- NOTE | 2024-09-30 17:26 | PTOPEVAL1 ---
Assessment and note entered by Gianna Villa, PT Evaluation Information Assessment Status Evaluation Other ICD-10 Condition Codes ( M54.17, M46.1, M25.559 PT) Onset 09/17/24 Subjective Information Chris Toth reports she has had left lower back pain for about 3 years. She had x-rays and MRI performed that showed a bulging discs. She can feel a lump in her lower back and she did have a ultrasound of the cyst that showed it was benign. She notes the lump will burn and hurt. She has seen a specialist for cysts and was told he could not do anything with the cyst and she was referred to a emergency management program specialist. She reports the emergency management program specialist sent her to pain management. The pain management doctor referred her to PT. She has pain in the left lower back that shoots down the back of her left thigh to the knee. She also sometimes has pain in the left foot. She has a history of right hip pain as well. She notes the pain is worse in the am, getting out of bed, and walking and standing for a long period. She has had 3 pregnancies with one being a miscarriage. She did have back pain with her first and has endometriosis. Reported Pain Level Pain Score 4: Self Report Assessment PT Clinical Summary Chris Toth presents with chronic left lower back pain and diagnostic tests reveal a bulging disc in the lumbar spine. She also c/o a cyst in her left lower back that becomes inflamed from time to time. She has difficulty with getting out of bed, prolonged standing and walking. She also has pain worse in the am. She objectively demonstrates tenderness over the left sacroiliac joint, decreased and painful lumbar AROM, decreased core and hip girdle strength, decreased hamstring flexibility, and decreased functional abilities. She will benefit from skilled PT to address these limitations. Plan of Care Interventions Electrical Stimulation,Hot Pack/Cold Pack,Manual Therapy,Mechanical Traction,Neuro Re-education, Patient/Caregiver Educati,Therapeutic Activities, Therapeutic Exercise PT Services Indicated Yes Treatment Frequency and 2 times a week for 10 visits Duration These treatments will address the objective and functional deficits as defined above. The patient will be advanced safely and appropriately in order for the patient to progress towards his/her prior level of function. Additional exercises will be introduced and as well as a comprehensive home exercise program upon discharge, if needed, ?to ensure carryover of functional gains achieved in the clinic. This treatment plan has been reviewed and agreement upon by the patient.
--- NOTE | 2024-10-15 16:53 | PCPTNOTE ---
No call no show
--- NOTE | 2024-11-25 08:52 | PCPTNOTE ---
11/25/24: Pt has not been seen since 10/09/24 and has not followed up. She will be discharged. -Gianna Villa, PT
== END 2024-10-09 16:45 | disposition home or self-care (01) ==
LOC: CHSPT 16:11
PROVIDERS: Visit Provider Anesthesiology Pain Medicine
DX: M54.17 Radiculopathy, lumbosacral region (principal); M46.1 Sacroiliitis, not elsewhere classified; M25.559 Pain in unspecified hip
CPT/HCPCS: 97014; 97110; 97140; 97161; G0283

== ENCOUNTER 2025-05-23 15:15 | Emergency (ER) | payer OTHER, SELFPAY ==
[2025-05-23 15:20] VITALS: BP 145/95; PULSE 99; RESP 20; TEMP 37.1; O2SAT 98
--- NOTE | 2025-05-23 15:22 | ED.URI ---
HPI - URI/Sore Throat General Chief Complaint: Ear Stated Complaint: ear inf, throat patient presents to the [facility] with complaints of right ear feeling clogged over the last days with loss of hearing as yesterday. Patient noted she was using ear wax softening drops and noted the muffled hearing got significantly worse. Patient noted she has had a long history of trouble with ear wax. past noted some mild drainage and scratchy throat that also started yesterday. No medication remedies attempt of her symptoms. Denies headache, fever, chills, body aches, dizziness, shortness of breath, or sinus pain. Related Data Allergies Allergy/AdvReac Type Severity Reaction Status Date / Time No Known Allergies Allergy Verified 09/16/24 14:15 Review of Systems Constitutional: Constitutional: Reports as per HPI, Denies chills, Denies fatigue, Denies fever(s) and Denies weakness Eyes: Eyes: Reports no additional eye complaints ENT: Reports as per HPI, Denies dysphagia, Denies vertigo, Denies dizziness, Denies epistaxis, Reports nasal congestion and Reports sore throat Comments: Right ear pain, loss of hearing right ear Cardiovascular: Cardiovascular: Reports no additional cardiovascular complaints Respiratory: Respiratory: Reports as per HPI, Denies chest congestion and Denies cough Gastrointestinal: Gastrointestinal: Reports no additional gastrointestinal complaints Genitourinary: Genitourinary: Reports no additional female genitourinary complaints Musculoskeletal: Musculoskeletal: Reports no additional musculoskeletal complaints Integumentary/Breasts: Skin/Breast: Reports system reviewed and no additional complaints, except as docu Neurologic: Reports as per HPI and Denies headache(s) Psychiatric: Psychiatric: Reports no additional psychiatric complaints Endocrine: Endocrine: Reports no additional endocrine complaints Hematologic/Lymphatic: Hematologic/Lymphatic: Reports no additional hematologic/lymphatic complaints Allergic/Immunologic: Allergic/Immunologic: Reports as per HPI Comments: seasonal allergies PMFSH Past Medical History Medical History (Updated 05/23/25 @ 15:50 by SUSAN Schreiber-C) History of blood transfusion Anxiety Depression Low back pain Lower urinary tract infection, acute Bladder dysfunction Self-catheterizes urinary bladder Epigastric abdominal pain BMI 27.0-27.9,adult Anxiety with depression Bladder cystocele Nicotine dependence with current use Frequent UTI Tobacco dependence Surgical History Surgical History H/O LEEP Hx of tonsillectomy Hx of appendectomy Family History Family History (Updated 03/23/23 @ 13:26 by Francia Sears MA) Mother Family history of anemia Family history of arthritis Family history of atrial fibrillation Depression Anxiety Thyroid disorder Sibling Depression Anxiety Son Asthma Grandparent Hypertension Depression Anxiety Heart problem Cerebrovascular accident Social History Social History (Updated 03/23/23 @ 13:33 by Francia Sears MA) Social History: Pt has had 3 pregnancies, 1 resulting in miscarriage. Does not utilize control. Performs self breast exams monthly. Her next Pap test is next week (week of 03/26/23). Smoking packs per day: 0.5 Smoking cigarettes per day: 10.0 Years smoked: 15 Smoking pack-years: 7.50 Smoking status: Current every day smoker Tobacco type: cigarettes Second hand tobacco smoke exposure: Yes Alcohol intake: current Alcohol use details: Beer Socially Substance use: never Substance use type: does not use Lack of Transportation: No Lack of Food: Never True Current Housing: I Have Housing Concerned About Future Housing: No Difficulty Paying Gas/Electric Bills: No Difficulty Paying for Meds: No Currently Unemployed: No Education: High School Diploma/GED Difficulty w/ Childcare or Family Care: No Living arrangements: with family Additional living arrangements comments: - with kids Occupation/Education: occupation 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 Gender identity (if verbalized by the patient): Female Sexual Orientation (if Verbalized by the Patient): Straight or Heterosexual Spiritual care concerns: No Agree to blood products: Yes Exam Const: General: healthy appearing and no acute distress Nutritional Appearance: well nourished Orientation/consciousness: patient oriented x3 Limitations: no limitations HENMT: Head: normal to inspection Ears: external ears abnormal ( pain with movement right ear), TM's normal bilaterally and EAC's normal Face/Nose/Sinus: Normal external nose present Face and sinus: normal facial exam and sinuses nontender Mouth: Yes Normal oral and palatal mucosa present Throat: posterior oropharynx normal Other: after cerumen removal moderate erythema and edema to right ear canal. Left ear canal normal Neck: Neck: no lymphadenopathy Resp: Effort & Inspection: normal respiratory effort Auscultation: clear to auscultation bilaterally Cardio: Rate: regular rate Rhythm: regular rhythm Skin: General skin exam: normal color Rashes: no rashes Wounds: no wounds Neuro: General: patient oriented x3 Speech: normal speech Gait exam (Neuro): Normal gait present Psych: Mental Status: mental status grossly normal Affect: normal affect Attitude: cooperative Course Course Level of Care: Express Care Visit Procedures Ear Wax Removal Right Ear: Ear Wax Removal Date: 05/23/25 Ear Wax Removal Time: 15:48 Cerumenolytic Used: other ( peroxide and warm water) Results: Re-examined: some cerumen remains TM Examination: TM(s) intact, normal appearance Ear Canal Exam: other ( erythema and edema) Patient Tolerated Procedure: well Complications: pain and vertigo/dizziness Technique: ear canal irrigated MDM - URI/Sore Throat MDM Narrative Medical decision making narrative: unable to remove all earwax due to pain. Infection noted. Discharge instructions reviewed with patient, as well as provided in writing per nursing staff. The instructions also include specific and strict return/GO TO THE ER as well as f/u information. All questions have been answered, and the patient deny any further questions with discharge and discharge plan. Differential Diagnosis Differential diagnosis: Likely upper respiratory infection, croup, otitis media, sinusitis, viral infection, bronchitis and influenza Medical Records Attestation: I reviewed the patient's medical records. Discharge Plan Discharge Clinical Impression: Cerumen debris on tympanic membrane of right ear, Allergic rhinitis Patient Disposition: Home Condition: Stable Instructions: Antibiotic Form, Carbamide Peroxide (Into the ear), Allergies (ED) Additional Instructions: -Ear drops as directed for 7-10 days until the pain and swelling are gone. -When administer drug into the affected ear; make sure to ly down with the affected ear facing upward, message the ear canal to help the drops reach the medial end of the canal, then remain in that position for at least 5 mintues. -Avoid using cotton tipped applicator for ears cleaning -Avoid exposing swimming or exposing the affected ear to water during the treatment period Take or alternate tylenol or ibuprofen every 4 - 6 hours if needed for pain. Follow up with primary care provider if condition is not improving in 7 days or sooner if there is new concern. Patient Language: [place] Leone[place] Prescriptions: New ciprofloxacin-dexamethasone 0.3-0.1 % drops,suspension 4 drp EACH EAR Q12H 7 Days Qty: 7.5 0RF prednisone 50 mg tablet 50 mg PO DAILY Qty: 5 0RF Follow-up/Referrals: Reema Cueto APRN [Primary Care Provider] - Time of Disposition: 15:51
== END 2025-05-23 15:56 | disposition home or self-care (01) ==
PROVIDERS: Emergency Provider Nurse Practitioner Family; PCP Nurse Practitioner Adult Health
DX: H61.21 Impacted cerumen, right ear (principal); J30.9 Allergic rhinitis, unspecified; F17.210 Nicotine dependence, cigarettes, uncomplicated
CPT/HCPCS: 69209; 99213; A9270; G0463

== ENCOUNTER 2025-06-15 15:50 | Emergency (ER) | payer OTHER, SELFPAY ==
--- NOTE | 2025-06-15 15:52 | ED.DENTAL ---
HPI - Dental/Oral General Chief complaint: Dental/Oral Stated complaint: tooth pain Time Seen by Provider: 06/15/25 15:58 Source: patient, RN notes reviewed and old records reviewed Mode of arrival: ambulatory Limitations: no limitations History of Present Illness HPI Narrative: 40-year-old female presents to the [facility] with complaints left upper dental pain. Patient states it has been intermittent for approximately 1 month. States that on Sunday she did break a tooth to the left upper pain started to increase with pain to the draw in to the ear. Treatment prior to arrival: none Related Data Allergies Allergy/AdvReac Type Severity Reaction Status Date / Time No Known Allergies Allergy Verified 06/15/25 15:56 Review of Systems Review of Systems: All systems reviewed & are unremarkable except as noted in HPI and below Constitutional: Constitutional: Reports no additional constitutional complaints ENT: Reports as per HPI and Reports dental pain PMFSH Past Medical History Medical History (Updated 06/16/25 @ 00:02 by Shira Edwards) History of blood transfusion Anxiety Depression Low back pain Lower urinary tract infection, acute Bladder dysfunction Self-catheterizes urinary bladder Epigastric abdominal pain BMI 27.0-27.9,adult Anxiety with depression Bladder cystocele Nicotine dependence with current use Frequent UTI Tobacco dependence Surgical History Surgical History H/O LEEP Hx of tonsillectomy Hx of appendectomy Family History Family History (Updated 03/23/23 @ 13:26 by Francia Sears MA) Mother Family history of anemia Family history of arthritis Family history of atrial fibrillation Depression Anxiety Thyroid disorder Sibling Depression Anxiety Son Asthma Grandparent Hypertension Depression Anxiety Heart problem Cerebrovascular accident Social History Social History (Updated 03/23/23 @ 13:33 by Francia Sears MA) Social History: Pt has had 3 pregnancies, 1 resulting in miscarriage. Does not utilize control. Performs self breast exams monthly. Her next Pap test is next week (week of 03/26/23). Smoking packs per day: 0.5 Smoking cigarettes per day: 10.0 Years smoked: 15 Smoking pack-years: 7.50 Smoking status: Current every day smoker Tobacco type: cigarettes Second hand tobacco smoke exposure: Yes Alcohol intake: current Alcohol use details: Beer Socially Substance use: never Substance use type: does not use Lack of Transportation: No Lack of Food: Never True Current Housing: I Have Housing Concerned About Future Housing: No Difficulty Paying Gas/Electric Bills: No Difficulty Paying for Meds: No Currently Unemployed: No Education: High School Diploma/GED Difficulty w/ Childcare or Family Care: No Living arrangements: with family Additional living arrangements comments: - with kids Occupation/Education: occupation 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 There is no relevant family history pertinent to the patient complaint. Exam Const: General: cooperative, healthy appearing, comfortable, no acute distress, well developed, alert and well nourished Nutritional Appearance: well nourished Orientation/consciousness: patient oriented x3 Limitations: no limitations HENMT: Head: normal to inspection Ears: hearing grossly normal bilaterally, external ears normal, TM's normal bilaterally, EAC's normal, mastoids normal and no periauricular adenopathy Mouth: Yes Normal oral and palatal mucosa present, Yes lip normal, Yes tongue normal and Yes moist mucous membranes Teeth and gingiva: caries, fair dentition and gingiva abnormal edematous (Left upper) and tender Eyes: General: appearance normal, both eyes and all related structures Alignment and Position: alignment normal Neck: Neck: normal visual inspection, full ROM, no lymphadenopathy and no meningeal signs Chest: Chest palpation & inspection: normal inspection of the chest Resp: Effort & Inspection: normal respiratory effort and able to speak in complete sentences Cardio: Rate: regular rate Skin: General skin exam: normal color and no rashes or lesions noted Neuro: General: patient oriented x3, gait normal, moves all extremities and no meningeal signs Cognition (Neuro): normal cognition Speech: normal speech Gait exam (Neuro): Normal gait present Extrem: General: normal to inspection, full ROM, capillary refill normal and normal gait Psych: Appearance: grossly normal and well kempt Mental Status: mental status grossly normal Speech and movement: Normal speech and movement present and Clear speech present Affect: normal affect Attitude: cooperative Course Course Level of Care: Express Care Visit Vital Signs Vital signs: Vital Signs Temperature 98.4 F 06/15/25 15:54 Pulse Rate 112 H 06/15/25 15:54 Respiratory Rate 20 06/15/25 15:54 Blood Pressure 154/102 H 06/15/25 15:54 Pulse Oximetry 100 06/15/25 15:54 Oxygen Delivery Room Air 06/15/25 15:54 Temperature 98.4 F 06/15/25 15:54 Pulse Rate 112 H 06/15/25 15:54 Respiratory Rate 20 06/15/25 15:54 Blood Pressure 154/102 H 06/15/25 15:54 Pulse Oximetry 100 06/15/25 15:54 Oxygen Delivery Room Air 06/15/25 15:54 Reviewed MDM - Dental/Oral MDM Narrative Medical decision making narrative: Patient sitting in exam room. Patient is nontoxic, vitals stable except blood pressure mildly elevated. Discussed importance of following up with primary care provider Fractured tooth, caries as well as mild edema to the left upper gingiva, will cover with antibiotic. Stressed the importance of following up with a dental provider for further evaluation. Patient appropriate for outpatient treatment with close follow-up Discharge instructions reviewed with patient, as well as provided in writing per nursing staff. The instructions also include specific and strict return/GO TO THE ER as well as f/u information. All questions have been answered, and the patient deny any further questions with discharge and discharge plan. Some parts of this dictation were generated by voice recognition software and may contain typographical and/or grammatical inaccuracies. Differential Diagnosis Differential diagnosis: Likely gingival abscess, dental caries, toothache, dental abscess and fracture of tooth Critical Care Time Critical Care Time Critical Care Time: No Discharge Plan Discharge Clinical Impression: Dental caries, Toothache Patient Disposition: Home Condition: Stable Instructions: Antibiotic Form, Toothache (ED) Additional Instructions: Finish the entire course of antibiotics Pressure T 3 times a day and using good mouthwash. After every time you eat be sure to use salt water rinses. Apply ice to face to help with pain. Take Tylenol alternating with Motrin as needed for pain. You can alternate every 4 hours You need to follow-up with a dental provider as soon as possible for further evaluation and treatment. A list of dental providers has been given to you Follow up with a Primary Care Provider (PCP) about medical needs. A PCP can help keep you healthy by preventive medicine and screening. Go to the ER for New or worsening symptoms. Patient Language: Cymro Prescriptions: New amoxicillin 875 mg tablet 875 mg PO Q12H Qty: 20 0RF Follow-up/Referrals: Reema Cueto APRN [Primary Care Provider[facility] Stand Alone Forms: Work/School Release IP Time of Disposition: 16:12
--- OUTSIDE RECORDS SUMMARY | 2025-06-15 15:52 | XMS_ITS | Referral Summary ---
Author Organization [facility] Address [address] [place] [phone] Care Team Providers Care Clinical Medical Assistant Name Role Phone Carla Abdalla MD, Seth Shankar Primary Care Provider Allergies Active Allergy Reactions Criticality Noted Date Comments Sulfa (Sulfonamide Antibiotics) Rash,Hives Reaction: RASH, Reaction: rash, hives, Medications norgestimate-ethiny l estradiol (SPRINTEC, 28,) 0.25-35 mg-mcg per tablet take 1 tablet by oral route every day 1 Package 13 6 Active HYDROcodone-acetami nophen (NORCO) 5-325 mg per tabletIndications:P ain Take 1 tablet by mouth every 6 (six) hours as needed for pain. 14 tablet 9 Active ondansetron ODT (ZOFRAN-ODT) 4 mg disintegrating tablet Dissolve 1 tablet oral every 4 hours as needed for nausea or vomiting. 15 tablet 9 Active nitrofurantoin monohydrate (MACROBID) 100 mg capsuleIndications: Urinary Tract/Genitourinary Infection Take 1 capsule (100 mg total) by mouth 2 (two) times a day 10 capsule 1 Active phenazopyridine (PYRIDIUM) 200 mg tablet Take 1 tablet (200 mg total) by mouth 3 (three) times a day 6 tablet 1 Active fluconazole (DIFLUCAN) 150 mg tablet Take 1 tablet orally as directed. 1 tablet 1 1 Active Active Problems Problem Noted Date Diagnosed Date Chronic eczematous otitis externa of both ears 0 07/04/2021 Assessment & Plan (07/04/2021 4:44 PM CDT): Keflex with a meal twice daily for 7 days Lotrisone cream to outer portion of ears twice daily for 14 days, then as needed Avoid ear cleaning techniques Avoid water to ears Avoid hair care products to ears Call if no improvement Cellulitis of right external ear 07/04/2021 Assessment & Plan (07/04/2021 4:44 PM CDT): Keflex with a meal twice daily for 7 days Lotrisone cream to outer portion of ears twice daily for 14 days, then as needed Avoid ear cleaning techniques Avoid water to ears Avoid hair care products to ears Call if no improvement Social History Tobacco Use Types Packs/Day Years Used Date Smoking Tobacco: Heavy Smoker Smokeless Tobacco: Never Tobacco Cessation:Ready to Q uit: Not Asked; Counseling Given: Not Answered Comments:Smoking History Packs/day: 0.5 Packs Alcohol Use Standard Drinks/Week Comments Yes 0 (1 standard drink = 0.6 oz pur e alcohol) Hunger Vital Sign Answer Date Recorded Within the past 12 months, y ou worried that your food would run out before you got the money to buy more. Never true 05/13/20 24 Within the past 12 months, t he food you bought just didn't last and you didn't have money to get more. 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 Gender Identity Not on file Sexual Orientation Not on file Last Filed Vital Signs Vital Sign Reading Time Taken Comments Blood Pressure 123/88 05/13/2024 12:21 PM CDT Pulse 88 05/13/2024 12:21 PM CDT Temperature 36.1 C (96.9 F) 07/04/2021 4:20 PM CDT Respiratory Rate 16 12/20/2020 1:58 PM LINTER SAW SHARPENER Oxygen Saturation 98% 05/13/2024 12:21 PM CDT Inhaled Oxygen Concentration - - Weight 75.3 kg (166 lb) 05/13/2024 12:21 PM CDT Height 167.6 cm (5' 6) 05/13/2024 12:21 PM CDT Body Mass Index 26.79 05/13/2024 12:21 PM CDT Plan of Treatment Not on file Insurance [facility] [address] [facility] Care Teams Clinical Medical Assistant Relationship Specialty Start Date End Date Seth Aguirre Jr., MD [address] [place] [id number] PCP - General Geriatric Medicine 07/04/21
--- OUTSIDE RECORDS SUMMARY | 2025-06-15 15:52 | XMS_ITS | Clinical Summary ---
Author Organization [facility] Address [facility] [place] [address] Care Team Providers Care Pbx Inspector Name Role Phone Khris Dawn MD Primary Care Provider Allergies Active Allergy Reactions Criticality Noted Date Comments Sulfa Antibiotics Rash Low 10/13/2020 Medications ARIPiprazole 5 MG tablet 09/09/2020 Active escitalopram 10 MG tablet 09/09/2020 Active HYDROcodone-julián taminophen 5-325 MG tabletIndicatio ns:Acute Pain < 7 Day Supply Take 1-2 tablets by mouth every 6 (six) hours as needed for Pain. Indications: Acute Pain < 7 Day Supply 30 tablet 10/20/2020 Active fluconazole 150 MG tablet Take 1 tablet by mouth once. 12/20/2020 Active nitrofurantoin, macrocrystal-mo nohydrate, 100 MG capsule Take 1 capsule by mouth 2 (two) times a day. 12/20/2020 Active phenazopyridine 200 MG tablet Take 1 tablet by mouth 3 (three) times daily as needed. 12/20/2020 Active Active Problems Problem Noted Date Diagnosed Date Closed nondisplaced fracture of shaft of fifth metacarpal bone of right hand with routine healing 10/13/2020 Family History Medical History Relation Comments No Known Problems Brother No Known Problems Father No Known Problems Maternal Grandfather No Known Problems Maternal Grandmother Fibromyalgia Mother Heart Mother No Known Problems Paternal Grandfather No Known Problems Paternal Grandmother No Known Problems Sister Relation Status Comments Brother Alive Father Maternal Grandfather Maternal Grandmother Mother Alive Paternal Grandfather Paternal Grandmother Sister Alive Social History Tobacco Use Types Packs/Day Years Used Date Smoking Tobacco: Every Day Cigarettes Smokeless Tobacco: Never Alcohol Use Standard Drinks/Week Comments Yes 0 (1 standard drink = 0.6 oz pur e alcohol) AUDIT-C Answer Date Recorded Q1: How often do you have a drink containing alc ohol? 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 Gender Identity Not on file Sexual Orientation Not on file Last Filed Vital Signs Vital Sign Reading Time Taken Comments Blood Pressure - - Pulse - - Temperature - - Respiratory Rate - - Oxygen Saturation - - Inhaled Oxygen Concentration - - Weight 74.8 kg (165 lb) 12/22/2020 1:45 PM 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 DRIVER Height 167.6 cm (5' 6) 12/22/2020 1:45 PM 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 DRIVER Body Mass Index 26.63 12/22/2020 1:45 PM 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 DRIVER Plan of Treatment Health Maintenance Due Date Last Done Comments Cervical Cancer Screening Pa p Smear (Age 30 to 64) Every 3 Years 1987 Annual Physical 1990 Hepatitis C 2005 DTaP, Tdap and Td Vaccines ( 1 - Tdap) 2006 Hepatitis B Vaccines (1 of 3 - 19+ 3-dose series) 2006 Pneumococcal Vaccine: Pediat rics (0 to 5 Years) and At-Risk Patients (6 to 49 Years) (1 of 2 - PCV) 2006 HPV Vaccines (1 - 3-dose SCD M series) 2014 Cervical Cancer Screening Pa p with HPV Testing (Age 30 to 64) Every 5 Years 2017 Cervical Cancer Screening with HPV 2017 COVID-19 Vaccine (2023-2 5 season) 2024 Meningococcal B Vaccine Aged Out No l onger eligible based on patient's age to complete this topic Meningococcal Vaccine Aged Out No rachel annetta eligible based on patient's age to complete this topic RSV Immunizations Under 20 Months Aged Out No longer eligible based on patient's age to complete this topic Insurance Care Teams Pbx Inspector Relationship Specialty Start Date End Date Khris Dawn MD [address] [place] [id number] PCP - General FAMILY PRACTICE 10/13/20
--- OUTSIDE RECORDS SUMMARY | 2025-06-15 15:52 | XMS_ITS | Clinical Summary ---
Author Organization [facility] Address [address] [place] [id number] Care Team Providers Care Stringed Instrument Assembler Name Role Phone Carla Abdalla MD, Seth [...] products to ears Call if no improvement Surgical History Surgery Date Site/Laterality Comments OTHER SURGICAL HISTORY 2000 Tonsillitis: tonsillectomy OTHER SURGICAL HISTORY 2009 Bladder dysfunction/frequent UTI's: cystoscopy/urethral dilatations OTHER SURGICAL HISTORY 2010 : vag vacuum OTHER SURGICAL HISTORY 2009 : spontaneous OTHER SURGICAL HISTORY 2014 : 7 hr labor OTHER SURGICAL HISTORY 2015 Abscess on buttock, (+) for MRSA: I&D in the ER OTHER SURGICAL HISTORY 1992 Appendicitis: appendectomy OTHER SURGICAL HISTORY 2014 Depression and anxiety: SSRI's OTHER SURGICAL HISTORY 2007 Abnormal pap smear: LEEP OTHER SURGICAL HISTORY 2016 Pelvic pain: ? pelvic congestion syndrome & possible endometriosis: diaganostic laparoscopy Medical History Medical History Date Comments Hx Other Medical 2000 Tonsillitis; Ou tcome: resolved Hx Other Medical 2009 Bladder dysfunc tion/frequent UTI's Hx Other Medical 2010 ; Comm ents: Vacuum for fatigue and william-rectal pain. Augmented.; Outcome: 39 week 7 lb(s) 3 oz Male Hx Other Medical 2009 ; Comm ents: no D&C; Outcome: 9 week Unknown Hx Other Medical 2014 ; Comm ents: Late transfer of care. Kidney stone vs. severe UTI on presentation in early labor. Augmented labor.; Outcome: 39W5D week 7lb(s) 9 oz Male Hx Other Medical 2014 Abscess on butt ock, (+) for MRSA Hx Other Medical 1992 Appendicitis Hx Other Medical 2013 Depression and anxiety Hx Other Medical 2006 Abnormal pap sm ear Hx Other Medical 2015 Pelvic pain: ? 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 Gender Identity Not on file Sexual Orientation Not on file Obstetrics History Para Term AB IAB SAB Ectopic Multiple Livin g Live Births 3 2 2 1 2 Date Outcome GA Total Labor Labor/2nd/3rd Weight Sex Type Anes PTL Rajani A1 A5 Name Clin Term Term AB Comments G1: VAVD G2: 9wk SAB G3: Last Filed Vital Signs Vital Sign Reading Time Taken Comments Blood Pressure 123/88 05/13/2024 12:21 PM CDT Pulse 88 05/13/2024 12:21 PM CDT Temperature 36.1 C (96.9 F) 07/04/2021 4:20 PM CDT Respiratory Rate 16 12/20/2020 1:58 PM 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 Oxygen Saturation 98% 05/13/2024 12:21 PM CDT Inhaled Oxygen Concentration - - Weight 75.3 kg (166 lb) 05/13/2024 12:21 PM CDT Height 167.6 cm (5' 6) 05/13/2024 12:21 PM CDT Body Mass Index 26.79 05/13/2024 12:21 PM CDT Plan of Treatment Health Maintenance Due Date Last Done Comments Cervical Cancer Screening 1987 Depression Screening 1987 Hepatitis C Screening 1987 Varicella Vaccines (1 of 2 - 13+ 2-dose series) 2000 Hepatitis B Screening 2005 Regular Well Visit/Exam 18-64 2005 Pneumococcal vaccine <65 (1 of 2 - PCV) 2006 DTaP/Tdap/Td Vaccine (2 - Td or Tdap) 11/26/2020 11/26/2010 Influenza Vaccine (#1) 2025 3, 09/18/2022 HPV Vaccines Aged Out No longer eligi ble based on patient's age to complete this topic Insurance [facility] Care Teams Stringed Instrument Assembler Relationship Specialty Start Date End Date Seth Aguirre Jr., MD [address] [place] [id number] PCP - General Geriatric Medicine 07/04/21
--- OUTSIDE RECORDS SUMMARY | 2025-06-15 15:52 | XMS_ITS | Clinical Summary ---
Author Organization [facility] Address [address] [place] [address] Care Team Providers Care Marketing Strategy Lead Name Role Phone Colin Medina MD Primary Care Provider [phone] Source Comments [facility],non-owned Affiliates and Associated Physician Practices is amultiple site organization consisting of ambulatory clinics and hospital sitesin [place], [place], [place] and [place]. This disclosure is being madepursuant to the Care Everywhere program and may not contain all information available regarding this patient. Last updated 18.[facility] [employer] Social History Tobacco Use Types Packs/Day Years Used Date Smoking Tobacco: Never Assessed Comments Unknown Sex and Gender Information Value Date Recorded Sex Assigned at Not on file Legal Sex Female 2:39 PM CDT Gender Identity Not on file Sexual Orientation Not on file Plan of Treatment Health Maintenance Due Date Last Done Comments HIV SCREENING 2002 HEPATITIS C SCREENING 03/14/2005 DTAP/TDAP/TD VACCINES (1 - Tdap) 2006 HEPATITIS B VACCINE (1 of 3 - 19+ 3-dose series) 2006 PAP SMEAR 2008 HPV VACCINE (1 - 3-dose SCDM series) 2014 COVID-19 VACCINE (2023-2 5 season) 2024 DEPRESSION SCREENING 11/26/2024 INFLUENZA VACCINE (#1) 2025 ZOSTER VACCINE (1 of 2) 2037 HIB VACCINE Aged Out No longer eligi ble based on patient's age to complete this topic MENINGOCOCCAL (Group B) VACC INE SHARED DECISION-MAKING Aged Out No longer eligibl e based on patient's age to complete this topic MENINGOCOCCAL GROUPS A/C/Y/W VACCINE Aged Out No longer eligible b ased on patient's age to complete this topic PNEUMOCOCCAL VACCINE Aged Out No long er eligible based on patient's age to complete this topic Insurance Care Teams Marketing Strategy Lead Relationship Specialty Start Date End Date Colin Medina MD [address] [place] [id number] PCP - General 09/22/19
--- OUTSIDE RECORDS SUMMARY | 2025-06-15 15:52 | XMS_ITS | Data Portability ---
Author Organization [place] - [facility]- Address [address] [facility] [place] [address] Assessment Encounter Date Assessment Date Assessment LastModified by Organization Details LastModified Time 10/22/2023 10/22/2023 Information regarding the particular vaccine that patient is receiving today was presented to the parent(s). All questions were answered [email or web address] Not available 10/22/2023 18:31:44 Plan of Treatment Reminders Order Date Submit Date Provider Last Modified By Organization Details Last Modified Time Details Appointments None record ed. Lab None record ed. Referral None record ed. Procedures None record ed. Surgeries None record ed. Imaging None record ed. Medication Orders None record ed. Patient TargetsNo targets recorded. Patient Instructions Encounter Date Encounter Id Patient Instructions Last Modified By Organization Details Last Modified Time 09/18/2022 [id number] influenza (flu) vaccine (inactivated or recombinant): what you need to know eve Not available 09/18/2022 15:04:09 10/22/2023 [id number] influenza (flu) vaccine (inactivated or recombinant): what you need to know [email or web address] Not available 10/22/2023 18:31:52 Reason for Referral None Reported. Problems No Known Problems Medical Equipment None Reported. Allergies No known drug allergies Medications Not known to be on any medication Vitals None Recorded Social History None recorded. Functional Status None recorded. Mental Status None recorded. Family History Nothing Reported. Medical History No medical history recorded. Gynecological HistoryNo gynecological history recorded. Obstetrics History GPAL:G 0 P 0 0 0 0 Immunizations Vaccine Type Date Status Note Provider Nam e and Address Organization Details Recorded Time Influenza, split virus, quadrivalent, PF 09/18/2022 completed Yessi Pillai [place], [place] - [facility], 09/18/2022 15:18:21 Influenza, split virus, quadrivalent, PF 10/22/2023 completed Karen Worthy [place], [place] - [facility], 10/22/2023 19:08:04 Past Encounters Encounter ID Performer Location Encounter Start Date Encounter Closed Date Diagnosis/Indication Diagnosis SNOMED-CT Code Diagnosis ICD10 Code Diagnosis Note [id number] Lanie Ortiz MD [facility] [address] [place] [phone] 09/18/2022 15:00:04 09/20/2022 16:21:10 Active or passive immunization [id number] [id number] Sherice Berg MD [facility] [address] [place] [address] [address] [place] [phone] 10/22/2023 18:21:28 10/22/2023 21:08:14 Active or passive immunization [id number] Z23 Health Concerns Section Related Observation LastModified by Organization Detai ls LastModified Time None Recorded Concern Status LastModified by Organization Details LastModified Time None Recorded Advance Directives Directive None Recorded Payers Insurance Date Sequence Insurance Name Policy Number Policy Felton Covered Member ID Felton Member ID Guarantor Name 10/22/2023 1 [facility] - DOS ON OR AFTER 21 (MEDICAID REPLACEMENT - HMO) Chris Toth [id number] Chris Toth OBGyn Episode No OBEpisode recorded.
--- OUTSIDE RECORDS SUMMARY | 2025-06-15 15:53 | XMS_ITS | Clinical Summary ---
Author Organization [facility] Address [address] [place] [address] Care Team Providers Care Learning Administrator Name Role Phone Colin Medina MD Primary Care Provider [phone] Allergies Active Allergy Reactions Criticality Noted Date Comments Ciprofloxacin Nausea,Vomiting 07/14/2019 Sulfa Antibiotics Hives,Rash,Itching 12/27/2017 Medications MedroxyPROGEST ERone Acetate (DEPO-PROVERA IM) by Intramuscular route. Active tamsulosin (FLOMAX) 0.4 MG CapsuleIndicat ions:Urinary retention Take 1 Cap by mouth daily. 90 Cap 3 9 Active Active Problems Problem Noted Date Diagnosed Date Iron deficiency anemia due to chronic blood loss 01/07/2018 Excessive bleeding in premenopausal period 01/07 Bilateral upper abdominal discomfort 01/07/2018 Heartburn 01/07/2018 Resolved Problems Problem Noted Date Diagnosed Date Resolved Date Microcytic anemia 12/27/2017 01/07/2018 Family History Medical History Relation Name Comments Heart Attack Maternal Grandfather Hypertension Maternal Grandfather Cancer Maternal Grandmother Congestive Heart Failure Mother Relation Name Status Comments Maternal Grandfather Maternal Grandmother Mother Social History Tobacco Use Types Packs/Day Years Used Date Smoking Tobacco: Every Day Cigarettes 0.5 13 Smokeless Tobacco: Never Tobacco Cessation:Ready to Q uit: Yes; Counseling Given: Yes Alcohol Use Standard Drinks/Week Comments Yes 0 (1 standard drink = 0.6 oz pur e alcohol) occasionally Sexually Active Control Partners Comments Yes Male Comments No Sex and Gender Information Value Date Recorded Sex Assigned at Not on file Legal Sex Female 10:50 PM CDT Gender Identity Not on file Sexual Orientation Not on file Last Filed Vital Signs Vital Sign Reading Time Taken Comments Blood Pressure 108/66 07/14/2019 10:39 AM CDT Pulse 86 07/14/2019 10:39 AM CDT Temperature 36.3 C (97.4 F) 07/14/2019 10:39 AM CDT Respiratory Rate 16 07/14/2019 10:39 AM CDT Oxygen Saturation 98% 07/14/2019 10:39 AM CDT Inhaled Oxygen Concentration - - Weight 75.9 kg (167 lb 6.4 oz) 07/14/2019 10:39 AM CDT Height 167.6 cm (5' 6) 07/14/2019 10:39 AM CDT Body Mass Index 27.02 07/14/2019 10:39 AM CDT Plan of Treatment Health Maintenance Due Date Last Done Comments Hepatitis C Virus (HCV) Screening 1987 Human Papillomavirus (HPV) Immunization (1 - 3-dose series) 2002 Hepatitis B Immunization (1 of 3 - 19+ 3-dose series) 2006 Pap Smear 2008 Cervical Cancer Screening (CCS) 2017 HPV/Cotest 2017 SARS-COV-2 Immunization ( - 2023- season) 2024 Influenza Immunization (#1) 2025 Respiratory Syncytial Virus (RSV) Immunization (Adult) (1 - 1-dose 75+ series) 2062 DTaP/Tdap/Td Immunization Discontinued 11/26/2010 TdaP Immunization Completed 11/26/2010 Meningococcal Immunization (ACWY) Aged Out No longer eligible based on patient's age to complete this topic Pneumococcal Immunization Combined Aged Out No longer eligible based on patient's age to complete this topic Rotavirus Immunization Aged Out No lo nger eligible based on patient's age to complete this topic Insurance MEDICAID [employer] Care Teams Learning Administrator Relationship Specialty Start Date End Date Colin Medina MD [address] [place] [address] PCP - General Family Medicine 03/25/19
[2025-06-15 15:54] VITALS: BP 154/102; PULSE 112; RESP 20; TEMP 36.9; O2SAT 100
== END 2025-06-15 16:19 | disposition home or self-care (01) ==
PROVIDERS: Emergency Provider Nurse Practitioner; PCP Nurse Practitioner Adult Health
DX: K02.9 Dental caries, unspecified (principal); F17.210 Nicotine dependence, cigarettes, uncomplicated
CPT/HCPCS: 99213; G0463